=== PATIENT | male | born 1995 | race African-American/Black ===

== ENCOUNTER 2025-03-27 22:41 | Emergency (ER) | payer OTHER, SELFPAY ==
[2025-03-27 22:47] VITALS: BP 127/70; PULSE 70; RESP 18; TEMP 36.6; O2SAT 98; BMI 29.5
[2025-03-28 02:46] VITALS: BP 130/79; PULSE 56; RESP 16; TEMP 36.8; O2SAT 100
--- NOTE | 2025-03-28 03:30 | ED.GENADULT ---
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 The pain was mild at first but worsened yesterday, prompting evaluation at his workplace wellness center where he was observed to be bearing extra weight on the right leg. He denies any trauma, falls, or accidents. The pain occurs primarily with weight bearing and standing for prolonged periods, but also when turning on the affected leg, and occasionally when stepping. He denies radiation of pain and denies any discomfort with palpation. He denies associated fever, urinary symptoms, nausea, or vomiting. At work he used a warm pack which provided some relief. The patient has not taken any medication for his symptoms. Related Data Previous Rx's ?Medication ?Instructions ?Recorded acetaminophen 500 mg capsule 1,000 mg (2 x 500 mg) PO .q8 PRN 03/28/25 fever or pain #30 caps ibuprofen 600 mg tablet 600 mg PO Q8H PRN fever or pain 03/28/25 #30 tabs Allergies Allergy/AdvReac Type Severity Reaction Status Date / Time No Known Allergies Allergy Verified 03/27/25 22:51 Review of Systems Review of Systems: Yes all other systems are reviewed and are negative PMFSH Social History Social History Smoked in Last 30 Days: No Use of substances other than those prescribed or required for medical reasons: Yes Substance Use Type: Marijuana Advance Directives: No Advance Directives Information Provided: Yes Do you have a plan to hurt others: No Plan Physical Exam ED Vital Signs: Vital Signs - 24 hr 03/27/25 22:47 03/28/25 02:46 03/28/25 04:02 Temperature 98 F 98.3 F 98.6 F Pulse Rate 70 56 74 Respiratory Rate 18 16 16 Blood Pressure 127/70 130/79 123/63 Pulse Oximetry 98 100 100 Oxygen Delivery Method Room Air Room Air Room Air BMI result Body Mass Index 29.5 CONSTITUTIONAL: The patient appears non-toxic, well nourished and in no acute distress. Vital signs as documented. HEAD: Atraumatic, normocephalic. EYES: EOMs grossly intact, pupils equal, conjunctiva clear, no exudate. ENT: Nares patent, no discharge. Airway patent, no audible stridor, visible mucosa is pink and moist without noted lesions. NECK: trachea is midline, no obvious masses or gross abnormalities. CHEST: Symmetric movement, normal appearance. LUNGS: Non-labored work of breathing. CARDIAC: No evidence of hypoperfusion. ABDOMEN: Nondistended, no obvious injury. : Deferred. EXTREMITIES: No point tenderness of the right hip, no pain with axial loading, right hip demonstrates full nonpainful range of motion. Distal CSM intact, 2+ DP/PT pulses noted. Moves all extremities spontaneously without reported pain. No obvious injury or deformity noted. NEURO: Alert and oriented x3, CN II-XII appear grossly intact. Cerebellar Functioning grossly intact. Speech clear and appropriate. SKIN: Warm, dry, color appropriate. No rashes or lesions noted. 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 The pain was mild at first but worsened yesterday, prompting evaluation at his workplace wellness center where he was observed to be bearing extra weight on the right leg. He denies any trauma, falls, or accidents. The pain occurs primarily with weight bearing and standing for prolonged periods, but also when turning on the affected leg, and occasionally when stepping. He denies radiation of pain and denies any discomfort with palpation. He denies associated fever, urinary symptoms, nausea, or vomiting. At work he used a warm pack which provided some relief. The patient has not taken any medication for his symptoms. In the ED today the patient received ibuprofen and acetaminophen during triage, patient reports excellent relief from these interventions and requests outpatient prescriptions for both. Patient also requests a work note for tonight (03/28). On exam patient has no point tenderness of the right hip, no pain with axial loading, right hip demonstrates full nonpainful range of motion, no other acute findings. Patient will be discharged with the prescriptions for ibuprofen and Tylenol, and a work note will be provided as requested. Admission/Observation Consideration of admission/observation: Escalation of care including admission/observation considered Discharge Plan Discharge Clinical Impression: Hip pain, right Patient Disposition: Home, Self-Care Instructions: Arthralgia (ED), Hip Pain (ED) Additional Instructions: Thank you for choosing [facility]'s Emergency Department for your care today. Thankfully your exam and vital signs today are reassuring. At this time there is no indication for admission to the hospital or continued ED observation, and it is safe to discharge you home. Your right hip pain is likely due to overuse versus a musculoskeletal strain, your symptoms improved significantly following ibuprofen and Tylenol provided in the emergency department. You should take alternating (staggered) doses of ibuprofen 600mg and Tylenol 1000mg every 4 hours as needed for any additional pain. Please rest the injured area, and apply ice for 20 minutes every hour. Please follow up with your primary care physician for re-evaluation, additional management of your symptoms, and continued preventative care. If you do not have a primary care physician, please call the [facility] at [phone] to establish a new primary care physician. While waiting to establish your new primary care physician, you can call our Walk[facility]in [facility] at [phone] for non-emergency needs. Please return to the emergency department if you develop a severe or sudden change in your symptoms, a fever over 100.4 that does not improve with Tylenol or Ibuprofen, recurrent vomiting, or any other new or worsening symptoms or concerns. Prescriptions: New acetaminophen 500 mg capsule 1,000 mg PO .q8 PRN (Reason: fever or pain) Qty: 30 0RF ibuprofen 600 mg tablet 600 mg PO Q8H PRN (Reason: fever or pain) Qty: 30 0RF Stand Alone Forms: Work/School Release Print Language: Martiniquais
--- OUTSIDE RECORDS SUMMARY | 2025-03-28 03:46 | XMS_ITS | Clinical Summary ---
Author Organization [facility] Address [address] [place] [address] Care Team Providers Care Diesel Engine Mechanic Name Role Phone Brianda Carpio Primary Care Provider [phone] Allergies No known active allergies Medications ibuprofen (MOTRIN) 600 mg tablet Take 1 tablet (600 mg total) by mouth every 8 hours as needed for pain for up to 12 doses. 12 tablet 5 Active acetaminophen (TYLENOL) 500 mg tablet Take 2 tablets (1,000 mg total) by mouth every 6 hours as needed for pain for up to 3 days. 24 tablet 5 03/21/20 25 lidocaine (LIDODERM) 5% patch Apply 1 patch topically to the affected area once a day for 5 days. Remove and discard patch within 12 hours or as directed. 5 patch 5 03/23/20 25 Encounters Date Type Department Care Team Description 03/18/2025 1:15 AM EST - 03/18/2025 3:08 AM EST Emergency [facility] Emergency Department [address] [place] [id number] Rudolph Gusman MD Right hip pain (Primary Dx) Discharge Disposition: Home or Self Care () 03/17/2025 11:40 PM EST - 03/18/2025 1:34 AM [facility] Emergency [facility] Emergency Department [address] [place] [address] Discharge Disposition: Left Without Being Seen (07) from Last 3 Months Social History Tobacco Use Types Packs/Day Years Used Date Smoking Tobacco: Never Smokeless Tobacco: Never Tobacco Cessation:Counseling Given: Not Answered Alcohol Use Standard Drinks/Week Comments Never 0 (1 standard drink = 0.6 oz pur e alcohol) Sex and Gender Information Value Date Recorded Sex Assigned at Male 03/18/2025 1:35 AM EST Legal Sex Male 11:40 PM EST Gender Identity Not on file Sexual Orientation Not on file Last Filed Vital Signs Vital Sign Reading Time Taken Comments Blood Pressure 130/97 03/18/2025 1:18 AM EST Pulse 75 03/18/2025 1:18 AM EST Temperature 36.9 C (98.4 F) 03/18/2025 1:18 AM EST Respiratory Rate 18 03/18/2025 1:18 AM EST Oxygen Saturation 98% 03/18/2025 1:18 AM EST Inhaled Oxygen Concentration - - Weight 90.7 kg (200 lb) 03/18/2025 1:18 AM EST Height 175.3 cm (5' 9 ) 03/18/2025 1:18 AM EST Body Mass Index 29.53 03/18/2025 1:18 AM EST Plan of Treatment Health Maintenance Due Date Last Done Comments HIV Screening 1994 Hepatitis C Screening 1994 Varicella Vaccines (1 of 2 - 13+ 2-dose series) 06/19/2007 Hepatitis B Vaccines (1 of 3 - 19+ 3-dose series) 2013 Alcohol/Substance Use Screening 04/06/2024 Depression Screening and Follow-Up 04/06/2024 Social Drivers of Health Annual Screening 04/06/2024 Influenza Vaccine (#1) 2024 COVID-19 Vaccine (1 - 2024-2 6 season) 2024 DTaP,Tdap,and Td Vaccines (3 - Td or Tdap) 03/25/2031 03/25/2021, 04/11/2016 Pneumococcal Vaccine: Pediatric (0-5 Years) and At-Risk Patients (6-50 Years) Aged Out No longer eligible based on patient's age to complete this topic Procedures * Due to [place] state law, this organization might not be sharing negative HIV tests. Procedure Name Priority Date/Time Associated Diagnosis Comments XR HIP RIGHT 2+ VW W PELVIS STAT 03/18/2025 2:05 AM EST from Last 3 Months Results * Due to [place] state law, this organization might not be sharing negative HIV tests. * XR Hip Right 2+ vw W Pelvis (03/18/2025 2:05 AM EST) Anatomical Region Laterality Modality Body, Pelvis, Hip Right Radiographic I maging 03/18/2025 3:28 AM EST Impressions 03/18/2025 3:29 AM EST Pelvis and right hip: No acute fracture or dislocation. If this radiology report contains a blank impression section, it is an incomplete radiology report. Please contact the interpreting radiologist or applicable radiology division as soon as possible to obtain the completed interpretation. Workstation ID: [id number] Narrative 03/18/2025 3:29 AM EST COMPARISON: There are no prior studies available for comparison at this time. FINDINGS AND Resulting Agency Comment [id number] Procedure Note Jenny Sanders MD - 03/18/2025 COMPARISON: There are no prior studies available for comparison at thistime. FINDINGS AND IMPRESSION: Pelvis and right hip: No acute fracture or dislocation. If this radiology report contains a blank impression section, it is anincomplete radiology report. Please contact the interpreting radiologistor applicable radiology division as soon as possible to obtain thecompleted interpretation. Workstation ID: [id number] Rudolph Gusman MD IMG XR PROCEDURES Final R esult from Last 3 Months Insurance [facility] Care Teams Diesel Engine Mechanic Relationship Specialty Start Date End Date Brianda Carpio [address] [place] [id number] PCP - General Pediatrics 03/18/25
--- OUTSIDE RECORDS SUMMARY | 2025-03-28 03:46 | XMS_ITS ---
Author Name [facility] Organization Unknown History of Medication Use Medication Directions Dispensed Refills Start Date End Date Stat us acetaminophen (TYLENOL) 325 mg tablet Take 2 tablets (650 mg total) by mouth every 6 (six) hours if needed for mild pain. 03/21/2025 03/21/2025 active ibuprofen (ADVIL,MOTRIN) 600 mg tablet Take 1 tablet (600 mg total) by mouth every 6 (six) hours if needed for mild pain for up to 7 days. 03/21/2025 03/21/2025 active Problems Problem Status Onset Date Problem Type Date of Resoluti on Source Hip strain, right, initial encounter active EncounterDiagnosisAct C [id number] Encounters Encounter Type Encounter Reason Primary Diagnosis Location Date Emergency RT SIDED HIP PAIN RT SIDED HIP PAIN [facility]sp [facility] 03/26/2025 Emergency LOW RT SIDE HIP PAIN LOW RT SIDE HIP PAIN [facility] 03/26/2025 Emergency leg pain Strain of muscle , fascia and tendon of right hip, initial encounter [facility] 03/21/2025 Care Team Organization Name Specialty Phone Email Start Date End [facility] Physician,ED Primary Care 03/26/2025 [facility] ED Physician Primary Care 03/26/2025 [facility] PCP PHYSICIAN Primary Care 03/21/2025 [facility] PHYSICIAN Primary Care 03/21/2025
--- OUTSIDE RECORDS SUMMARY | 2025-03-28 03:46 | XMS_ITS | Clinical Summary ---
Author Organization [facility] Address [address] [place] [address] Phone Care Team Providers Care Scanning Manager Name Role Phone Physician, Pcp Unknown Primary Care Provider Dorcas vailable Allergies No known active allergies Medications ibuprofen (ADVIL,MOTRIN) 600 mg tablet Take 1 tablet (600 mg total) by mouth every 6 (six) hours if needed for mild pain for up to 7 days. 28 tablet 03/21/2025 Active acetaminophen (TYLENOL) 325 mg tablet Take 2 tablets (650 mg total) by mouth every 6 (six) hours if needed for mild pain. 30 tablet 03/21/2025 Active Active Problems No known active problems Encounters Date Type Department Care Team Description 03/21/2025 12:03 AM EST - 03/21/2025 2:[address] [facility] Emergency [address] [place] [id number] Sherwin Chao MD Hip strain, right, initial encounter (Primary Dx) Discharge Disposition: Home or Self Care from Last 3 Months Social History Tobacco Use Types Packs/Day Years Used Date Smoking Tobacco: Former Cigarettes Smokeless Tobacco: Never Tobacco Cessation:Counseling Given: Not Answered Alcohol Use Standard Drinks/Week Comments Never 0 (1 standard drink = 0.6 oz pur e alcohol) Sex and Gender Information Value Date Recorded Sex Assigned at Male 03/21/2025 12:29 AM EST Legal Sex Male 8:10 PM EST Gender Identity Male 03/21/2025 12:29 AM EST Sexual Orientation Not on file Last Filed Vital Signs Vital Sign Reading Time Taken Comments Blood Pressure 130/93 03/21/2025 12:00 AM EST Pulse 92 03/21/2025 12:00 AM EST Temperature 36.9 C (98.4 F) 03/21/2025 12:02 AM EST Respiratory Rate 18 03/21/2025 12:00 AM EST Oxygen Saturation 97% 03/21/2025 12:00 AM EST Inhaled Oxygen Concentration - - Weight 90.7 kg (200 lb) 03/21/2025 12:00 AM EST Height 175.3 cm (5' 9 ) 03/21/2025 12:00 AM EST Body Mass Index 29.53 03/21/2025 12:00 AM EST Plan of Treatment Health Maintenance Due Date Last Done Comments DTaP,Tdap,and Td Vaccines (1 - Tdap) 2013 Hepatitis B Vaccines (1 of 3 - 19+ 3-dose series) 2013 HPV Vaccines (1 - 3-dose SCD M series) 2021 HIV Screening 03/08/2022 Hepatitis C Screening 03/08/2022 Social Influencers of Health Screening 03/08/2022 Depression Screening 04/06/2024 COVID-19 Vaccine ( - 2024-2 6 season) 2024 Influenza Vaccine (#1) 2024 RSV Immunization Adult Patie nts (1 - 1-dose 75+ series) 2069 HIB Vaccines Aged Out No longer eligi ble based on patient's age to complete this topic Hepatitis A Vaccines Aged Out No long er eligible based on patient's age to complete this topic IPV Vaccines Aged Out No longer eligi ble based on patient's age to complete this topic MMR Vaccines Aged Out No longer eligi ble based on patient's age to complete this topic Meningococcal ACWY Vaccine Aged Out N o longer eligible based on patient's age to complete this topic Meningococcal B Vaccine Aged Out No l onger eligible based on patient's age to complete this topic Pneumococcal Vaccine: Pediat rics (0 to 5 Years) and At-Risk Patients (6 to 49 Years) Aged Out No longer eligible b ased on patient's age to complete this topic RSV Immunization Patients Un dave 20 months Aged Out No longer eligible b ased on patient's age to complete this topic Varicella Vaccines Aged Out No longer eligible based on patient's age to complete this topic Insurance [facility] [employer] Care Teams Scanning Manager Relationship Specialty Start Date End Date Physician, Pcp Unknown PCP - General 05/10/24
[2025-03-28 04:02] VITALS: BP 123/63; PULSE 74; RESP 16; TEMP 37; O2SAT 100
[2025-03-28 04:04] VITALS: BP 115/69; PULSE 66; RESP 16; TEMP 36.8; O2SAT 100
[2025-03-28 04:07] VITALS: BP 115/69; PULSE 66; RESP 16; TEMP 36.8; O2SAT 100
== END 2025-03-28 04:07 | disposition home or self-care (01) ==
PROVIDERS: Emergency Provider Emergency Medicine
DX: M25.551 Pain in right hip (principal)
CPT/HCPCS: 99283; 99284